=== PATIENT | female | born 1990 | race Caucasian/White ===

== ENCOUNTER 2018-07-04 18:27 | Emergency (ER) | payer MEDICAID ==
[~2018-07-04] VITALS: Ht 162.6 cm; Wt 61.2 kg
[2018-07-04 18:30] VITALS: BP_SYST 107
--- NOTE | 2018-07-04 18:30 | NUR ---
BROUGHT BACK TO BED #8 AND TRIAGED. REPORT GIVEN TO JESÚS
--- NOTE | 2018-07-04 18:30 | NUR ---
Rahul ventura in ED - 07/04/18 at 1853 by SAVANAH BROUGHT BACK TO BED #8 AND TRIAGED. REPORT GIVEN TO JESÚS
--- NOTE | 2018-07-04 19:04 | NUR ---
Dr. Duran bedside for Pt eval
--- NOTE | 2018-07-04 19:12 | NUR ---
Pt came into ED C/O cough greater than 1 week. The Pt states that the cough was initially dry and now is productive of green sputum within the past 3 days. She reports being seen at an urgent care 1 week ago and was prescribed Augmentin but states having no improvement of her cough. She also reports having a sharp, nonradiating mid sternal chest pain which she describes as being most notable when taking deep breaths. She also reports having ear pain described as aching. No other complaints and or injuries noted. VSS no s/s of acute distress. Resting on gurney with rails up
[2018-07-04 20:10] VITALS: BP_SYST 107
--- NOTE | 2018-07-04 20:10 | NUR ---
Patient given written and verbal discharge instructions and verbalizes understanding. ER MD discussed with patient the results and treatment provided. Patient in stable condition. ID arm band removed. Rx of Albuterol and Guaifenesin given. Patient educated on pain management and to follow up with PMD. Pain Scale 0/10. Opportunity for questions provided and answered. Medication side effect fact sheet provided.
== END 2018-07-04 20:10 | disposition home or self-care (01) ==
LOC: SED 18:27
DX: J40 Bronchitis, not specified as acute or chronic (principal)
CPT/HCPCS: 71045; 81025; 93005; 99283

== ENCOUNTER 2018-12-11 16:24 | Emergency (ER) | payer MEDICAID ==
[~2018-12-11] VITALS: Ht 162.6 cm; Wt 61.2 kg
[2018-12-11 16:28] VITALS: BP_SYST 114
[2018-12-11 18:00] VITALS: BP_SYST 114
== END 2018-12-11 18:00 | disposition home or self-care (01) ==
LOC: SED 16:24
DX: J20.8 Acute bronchitis due to other specified organisms (principal)
CPT/HCPCS: 36415; 71046-TC; 81002; 81025; 86710; 99284

== ENCOUNTER 2022-07-19 18:16 | Emergency (ER) | payer MEDICAID ==
[~2022-07-19] VITALS: Ht 162.6 cm; Wt 54.4 kg
[2022-07-19 19:06] VITALS: BP_SYST 125
--- NOTE | 2022-07-19 19:15 | NUR ---
Patient triaged and placed in waiting room. VSS and patient appears in no acute distress at this time. Accompanied by SIGNIFICANT OTHER, awaiting available bed, and MD notified of need for MSE.
--- NOTE | 2022-07-19 19:15 | NUR ---
DR. MURRAY IN TO ASSESS PT.
[2022-07-19 20:16] LABS: BASOPHILS # (AUTO) 0.2 K/uL (0.0-0.2); BASOPHILS % (AUTO) 1.5 % (0.0-2.0); EOSINOPHILS # (AUTO) 2.1 K/uL (0.0-0.4); EOSINOPHILS % (AUTO) 18.8 % (0.0-4.0); HEMATOCRIT 39.1 % (36-48); HEMOGLOBIN 12.7 g/dL (12.0-16.0); LYMPHOCYTES # (AUTO) 2.1 K/uL (1.0-5.5); LYMPHOCYTES % (AUTO) 18.5 % (20.5-51.5); MEAN CORPUSCULAR HEMOGLOBIN 26 pg (27-31); MEAN CORPUSCULAR HGB CONC 33 % (32-36); MEAN CORPUSCULAR VOLUME 79 fL (79.0-98.0); MONOCYTES # (AUTO) 0.6 K/uL (0.0-1.0); MONOCYTES % (AUTO) 5.3 % (1.7-9.3); NEUTROPHILS # (AUTO) 6.2 K/uL (1.8-7.7); NEUTROPHILS % (AUTO) 55.9 % (40.0-70.0); PLATELET COUNT (AUTO) 508 K/uL (130-430); RED BLOOD CELL COUNT(AUTO) 4.97 MIL/uL (4.2-6.2); RED CELL DISTRIBUTION WIDTH 16.3 % (9.0-15.0); WHITE BLOOD COUNT (AUTO) 11.1 K/uL (4.8-10.8)
[2022-07-19 20:19] LABS: ANION GAP 8 (5-15); CALCIUM 8.6 mg/dL (8.4-11.0); CHLORIDE 104 mmol/L (98-107); CREATININE 0.75 mg/dL (0.55-1.30); GFR AFRICAN AMERICAN 116 mL/min (>90); GLUCOSE 88 mg/dL (70-99); UREA NITROGEN, BLOOD 11 mg/dL (8-21)
[2022-07-19 20:23] LABS: ALANINE AMINOTRANSFERASE 19 U/L (12-78); ALBUMIN 3.7 g/dL (3.4-4.8); ASPARTATE AMINOTRANSFERASE 16 U/L (10-37); TOTAL BILIRUBIN 0.3 mg/dL (0.0-1.0)
[2022-07-19 20:33] LABS: ACETAMINOPHEN < 1 ug/mL (1-30); ALCOHOL, BLOOD < 3 mg/dL (<10)
--- NOTE | 2022-07-19 21:00 | NUR ---
Patient placed in ER BED 7 for evaluation. Bed in lowest position with siderails up. Instructed to notify ED staff for any changes in condition or worsening of symptoms. Patient verbalized understanding.
--- NOTE | 2022-07-19 21:15 | NUR ---
Dr. Holman at bedside examining the patient.
[2022-07-19] MEDS ORDERED: TRAM50TA2 PO (22:33)
[2022-07-19] MEDS ORDERED: IBUP-1969 PO (22:33)
[2022-07-19] MEDS ORDERED: ACET-2634 PO (22:33)
[2022-07-19 22:41] VITALS: BP_SYST 122
--- NOTE | 2022-07-19 22:42 | NUR ---
Patient given written and verbal discharge instructions and verbalizes understanding. ER MD discussed with patient the results and treatment provided. Patient in stable condition. ID arm band removed. Rx of TYLENOL, IBUPROFEN, TRAMADOL given. Patient educated on pain management and to follow up with PMD. Pain Scale 0/10. Opportunity for questions provided and answered. Medication side effect fact sheet provided.
== END 2022-07-19 22:41 | disposition home or self-care (01) ==
LOC: SED 18:16
DX: S06.0X0A Concussion without loss of consciousness, initial encounter (principal); R51.9 Headache, unspecified; W20.8XXA Other cause of strike by thrown, projected or falling object, initial encounter; Y93.89 Activity, other specified; Y92.89 Other specified places as the place of occurrence of the external cause; Y99.8 Other external cause status
CPT/HCPCS: 99284; 70450; 80053; 85025; 36415; 76376; G0482; G0480; G0481